=== PATIENT | male | born 1955 | race Caucasian/White ===

== ENCOUNTER 2017-01-21 09:08 | Emergency (ER) | payer SELFPAY | END 2017-01-21 13:50 | disposition left against medical advice (07) | LOC: FTE 09:08 | DX: Z53.21 Procedure and treatment not carried out due to patient leaving prior to being seen by health care provider (principal) ==

== ENCOUNTER 2019-03-22 13:47 | Emergency (ER) | payer SELFPAY ==
[~2019-03-22] VITALS: Wt 74.7 kg
[2019-03-22 13:57] VITALS: BP 157/82; PULSE 79; RESP 18
[2019-03-23] MEDS ORDERED: CYCL10TA7 PO (07:57)
[2019-03-23] MEDS ORDERED: NAPR-985 PO (07:57)
[2019-03-23] MEDS ORDERED: MED4DP PO (07:57)
[2019-03-23] MEDS ORDERED: HYDR-4011 PO (07:57)
== END 2019-03-22 15:34 | disposition left against medical advice (07) ==
LOC: FTE 13:47
DX: Z53.21 Procedure and treatment not carried out due to patient leaving prior to being seen by health care provider (principal)

== ENCOUNTER 2019-03-23 07:33 | Emergency (ER) | payer OTHER ==
[~2019-03-23] VITALS: Ht 165.1 cm; Wt 75.0 kg
[2019-03-23 07:35] VITALS: BP 144/79; PULSE 71; RESP 19; Ht 165.1 cm; Wt 75.0 kg
[2019-03-23] MEDS ORDERED: KETOROLAC 60 MG INJ IM STA (07:52)
[2019-03-23] MEDS ORDERED: NAPR-985 PO (07:57)
[2019-03-23] MEDS ORDERED: HYDR-4011 PO (07:57)
[2019-03-23] MEDS ORDERED: CYCL10TA7 PO (07:57)
[2019-03-23] MEDS ORDERED: MED4DP PO (07:57)
[2019-03-23] MEDS ORDERED: DEXAMETHASONE 10 MG/ML 1 ML INJ IM ONE (08:00)
--- NOTE | 2019-03-23 08:12 | ERD ---
ER Documentation Chief Complaint Chief Complaint back pain started last friday HPI 63-year-old male presenting with back pain. He states that started 2 days ago. He has pain with movement. Denies any traumatic injury. Denies any numbness or tingling down his legs. Has control of his urine and bowel movements. Has not taken medications for symptoms. Denies medical problems. NKDA. Surgical history is hernia repair. Social history denies ROS All systems reviewed and are negative except as per history of present illness. Medications Home Meds Active Scripts Methylprednisolone* (Medrol* DOSE PACK) 4 Mg/Dose-Pack Tab.ds.pk, 4 MG PO . DIRECTED, #1 PACKET Prov:IGGY LENNON PA-C 03/23/19 Naproxen* (Naprosyn*) 500 Mg Tablet, 500 MG PO BID PRN for PAIN AND/OR INFLAMMATION, #30 TAB Prov:IGGY LENNON PA-C 03/23/19 Cyclobenzaprine Hcl* (Cyclobenzaprine Hcl*) 10 Mg Tablet, 10 MG PO TID, #15 TAB Prov:IGGY LENNON PA-C 03/23/19 Hydrocodone/Acetaminophen ([place] 5-325 Tablet) 1 Each Tablet, 1 TAB PO Q6H PRN for PAIN, #7 TAB Prov:IGGY LENNON PA-C 03/23/19 Allergies Allergies: Coded Allergies: No Known Allergy (Verified Allergy, Unknown, 10/26/07) FmHx Family History: No diabetes, No coronary disease, No other Physical Exam Vitals Vital Signs Date Temp Pulse Resp B/P (MAP) Pulse Ox O2 O2 Flow FiO2 Time Delivery Rate 03/23/19 97.6 71 19 144/79 98 07:35 (100) Physical Exam Const: No acute distress Resp: Clear to auscultation bilaterally Cardio: Regular rate and rhythm, no murmurs Abd: Soft, non tender, non distended. Normal bowel sounds Skin: No petechiae or rashes Back: Tender palpation the paraspinous muscles. No midline tenderness. Ext: No cyanosis, or edema. Normal strength with flexion and extension of the lower extremities. Pain with straight leg raise. Neur: Awake and alert Results 24 hrs Current Medications Medications Dose Sig/Hal Start Time Status Last (Trade) Ordered Route PRN Stop Time Admin Dose Reason Admin 10 mg ONCE ONCE 03/23/19 DC Dexamethasone IM 08:00 03/23/19 (Decadron) 08:01 Ketorolac 60 mg ONCE STAT 03/23/19 DC Tromethamine IM 07:52 03/23/19 (Toradol) 07:53 Procedures/MDM Course: Toradol and Decadron given ED. MDM: 63-year-old male presenting with back pain. Patient has findings consistent with musculoskeletal strain and will be discharged with supportive medications. I have low suspicion for cauda equina, discitis or epidural abscess. Patient does not require antibiotics and does not require imaging or blood work at this time. Patient is discharged with strict ER precautions and told to follow-up with primary care within 1 to 2 days for close evaluation. Patient is told symptoms change or worsen to return immediately to the ER. All questions answered at discharge Departure Diagnosis: Primary Impression: Back pain Condition: Stable Patient Instructions: Back Pain (Acute Or Chronic) Referrals: JAZMIN WOOTEN MD (PCP) Additional Instructions: FOLLOW UP WITH YOUR PRIMARY CARE PHYSICIAN TOMORROW.Return to this facility if you are not improving as expected. IGGY LENNON PA-C March 23, 2019 08:12
== END 2019-03-23 08:33 | disposition home or self-care (01) ==
LOC: FTE 07:33
DX: M54.9 Dorsalgia, unspecified (principal)
CPT/HCPCS: 96372; 99284; J1100; J1885